=== PATIENT | female | born 1950 | race Caucasian/White ===

== ENCOUNTER 2024-11-09 17:23 | Inpatient (IN) | payer MEDICARE, OTHER ==
[~2024-11-09] VITALS: Ht 167.6 cm; Wt 92.5 kg
[2024-11-09] MEDS: IV NS 0.9% 1,000 ML BAG IV ONE (18:02)
[2024-11-09 18:05] LABS: PLATELET COUNT (AUTO) 326 K/uL (150-450); RED BLOOD CELL COUNT(AUTO) 3.68 MIL/uL (4.0-5.2); RED CELL DISTRIBUTION WIDTH 16.1 % (11.5-15.0); WHITE BLOOD COUNT (AUTO) 12.9 K/uL (4.3-11.0)
[2024-11-09 18:15] LABS: CALCIUM, SERUM 8.1 mg/dL (8.5-10.1); CREATININE 2.0 mg/dL (0.6-1.3); SODIUM SERUM 132 mmol/L (136-145); UREA NITROGEN, BLOOD 43 mg/dL (7-18)
[2024-11-09 18:20] LABS: INR 0.99 (0.91-1.10)
[2024-11-09 18:21] LABS: ASPARTATE AMINOTRANSFERASE 14 U/L (15-37); TOTAL PROTEIN, SERUM 6.6 g/dL (6.4-8.2)
[2024-11-09 18:22] LABS: LACTIC ACID 0.8 mmol/L (0.4-2.0)
[2024-11-09] MEDS ORDERED: CEFTRIAXONE 1GM BAG (ER ONLY) 50 ML IV ONE (18:40)
[2024-11-09] MEDS: CEFTRIAXONE 1GM BAG (ER ONLY) 1 GM/50 ML PIGGYBACK IV ONE (18:45)
[2024-11-09 18:56] LABS: APPEARANCE,URINE SLIGHTLY CLOUDY (CLEAR); BLOOD, URINE TRACE-INTA Ery/uL (NEGATIVE); LEUKOCYTE ESTERASE ,URINE 3+ (NEGATIVE); NITRITE, URINE POSITIVE (NEGATIVE); UGLUCOSE NEGATIVE (NEGATIVE)
[2024-11-09] MEDS ORDERED: AZITHROMYCIN 500 MG VIAL ONE (19:06)
[2024-11-09 19:10] LABS: ADD URINE CULTURE YES; SQUAMOUS EPITHELIAL CELL,UR Moderate /HPF (None Seen)
[2024-11-09] MEDS: AZITHROMYCIN 500 MG in IV D5W 250 ML IV ONE (19:15)
[2024-11-09] MEDS ORDERED: ACET-2030 PO (19:27)
[2024-11-09] MEDS ORDERED: GABA300C PO (19:27)
[2024-11-09] MEDS ORDERED: SACU1TAB PO (19:27)
[2024-11-09] MEDS ORDERED: TRAM50TA2 PO (19:27)
[2024-11-09] MEDS ORDERED: ACET-868 PO (19:27)
[2024-11-09] MEDS ORDERED: INSU100I30 SQ (19:27)
[2024-11-09] MEDS ORDERED: INSU100V39 SQ (19:27)
[2024-11-09] MEDS ORDERED: MAGN400O6 PO (19:27)
[2024-11-09] MEDS ORDERED: SERT50TA PO (19:27)
[2024-11-09] MEDS ORDERED: LIDO30CR47 TP (19:27)
[2024-11-09] MEDS ORDERED: MULT-447 PO (19:27)
[2024-11-09] MEDS ORDERED: HYDR453. TP (19:27)
[2024-11-09] MEDS ORDERED: CARB1TAB21 PO (19:27)
[2024-11-09] MEDS ORDERED: DOXE75CA4 PO (19:27)
[2024-11-09] MEDS ORDERED: LORA-258 PO (19:27)
[2024-11-09] MEDS ORDERED: L. A1TAB10 PO (19:27)
[2024-11-09] MEDS ORDERED: ROPI0.5T4 PO (19:27)
[2024-11-09] MEDS ORDERED: FAMO20TA8 PO (19:27)
[2024-11-09] MEDS ORDERED: CRAN425C6 PO (19:27)
[2024-11-09] MEDS ORDERED: BUPR1PAT20 TD (19:27)
[2024-11-09] MEDS ORDERED: FLUT1BLS IH (19:27)
[2024-11-09] MEDS ORDERED: LORA10TA7 PO (19:27)
[2024-11-09] MEDS ORDERED: VIT1CAPS44 PO (19:27)
[2024-11-09] MEDS ORDERED: IPRA3AMP22 IH (19:27)
[2024-11-09] MEDS ORDERED: ALBU8.5H8 IH (19:27)
[2024-11-09] MEDS ORDERED: NITR50CA4 PO (19:27)
[2024-11-09] MEDS ORDERED: GUAI-1189 PO (19:27)
[2024-11-09] MEDS ORDERED: ONDA4TAB5 PO (19:27)
[2024-11-09] MEDS ORDERED: ATOR40TA PO (19:27)
[2024-11-09] MEDS ORDERED: DIPH25TA25 PO (19:27)
[2024-11-09] MEDS ORDERED: MECL-159 PO (19:27)
[2024-11-09] MEDS ORDERED: LEVO100T9 PO (19:27)
[2024-11-09] MEDS ORDERED: DICL100G26 TP (19:27)
[2024-11-09] MEDS ORDERED: ASPI-1169 PO (19:27)
[2024-11-09] MEDS ORDERED: ARIP2TAB3 PO (19:27)
[2024-11-09] MEDS ORDERED: TAMS-12 PO (19:27)
[2024-11-09] MEDS ORDERED: CARV3.12 PO (19:27)
[2024-11-09] MEDS ORDERED: GLUC1KIT IM (19:27)
[2024-11-09] MEDS ORDERED: MIDODRINE HCL (5MG) 5 MG TABLET ONE (20:02)
[2024-11-09] MEDS: MIDODRINE HCL (5MG) 5 MG TABLET PO STA (20:06)
[2024-11-09] MEDS ORDERED: NOREPINEPHRINE 8MG/250ML RTU 250 ML IV ONE (20:35)
[2024-11-09] MEDS: NOREPINEPHRINE 8 MG in IV D5W 242 ML IV PRN ×2 (20:44→23:09)
[2024-11-09] MEDS ORDERED: ACETAMINOPHEN 325 MG TABLET PO PRN (21:00)
[2024-11-09] MEDS ORDERED: DOSING PER PHARMACY-VANCOMYCIN IV XX PRN (21:00)
[2024-11-09] MEDS ORDERED: NOREPINEPHRINE 8 MG in IV D5W 242 ML IV PRN (21:00)
[2024-11-09] MEDS ORDERED: DOSING PER PHARMACY-ZOSYN IV 1 EA EA XX PRN ×2 (21:00)
[2024-11-09] MEDS ORDERED: MAGNESIUM HYDROXIDE 30 ML UDC PO PRN ×2 (21:00→23:30)
[2024-11-09] MEDS ORDERED: Z GUARD REMEDY 4 OZ OINT TP PRN (21:00)
[2024-11-09] MEDS ORDERED: ZOLPIDEM TARTRATE 5 MG TABLET PO PRN (21:00)
[2024-11-09] MEDS ORDERED: MAG HYDROX/AL HYDROX/SIMETH 30 ML UDC PO PRN (21:00)
[2024-11-09 23:00] VITALS: BP 102/62; O2SAT 97
[2024-11-09] MEDS ORDERED: IV NS 0.9% 1,000 ML BAG IV PRN (23:00)
[2024-11-09 23:15] VITALS: BP 131/64; O2SAT 98
[2024-11-09] MEDS: VANCOMYCIN 1 GM in IV D5W 250ml IV SCH (23:23)
[2024-11-09] MEDS: VANCOMYCIN 1 GM /D5W 250 ML PB IV ONE (23:24)
[2024-11-09 23:30] VITALS: BP 94/52; O2SAT 96
[2024-11-09] MEDS ORDERED: GUAIFENESIN/D-METHORPHAN HB 5 ML UDC PO PRN (23:30)
[2024-11-09] MEDS ORDERED: IPRATROPIUM NEB FS 0.5 MG/2.5 ML AMPUL.NEB NEB PRN (23:30)
[2024-11-09] MEDS ORDERED: HYDROCORTISONE 1% CREAM 28.35 GM TUBE TP PRN (23:30)
[2024-11-09] MEDS ORDERED: BUPRENORPHINE TD SCH (23:30)
[2024-11-09] MEDS ORDERED: MECLIZINE HCL 25 MG TABLET PO PRN (23:30)
[2024-11-09] MEDS ORDERED: Medication Not On Formulary EA (Ipratropium/Albuterol Sulfate (Ipratr-Albuterol 0.5-3 Mg IH PRN (23:30)
[2024-11-09] MEDS ORDERED: ALBUTEROL FS 2.5 MG/3 ML VIAL.NEB NEB PRN ×2 (23:30)
[2024-11-09] MEDS ORDERED: TRAMADOL HCL 50 MG TABLET PO PRN (23:30)
[2024-11-09 23:45] VITALS: BP 115/61; O2SAT 98
[2024-11-10] VITALS (100 sets, daily range): BP systolic 62–183; BP diastolic 21–145; TEMP 97.5–97.9; O2SAT 78–99
[2024-11-10] MEDS ORDERED: IV NS 0.9% 1,000 ML BAG IV PRN
[2024-11-10] MEDS: IV NS 0.9% 1,000 ML IV PRN (00:22)
[2024-11-10] MEDS: VANCOMYCIN 1 GM /D5W 250 ML PB IV ONE (00:41)
[2024-11-10] MEDS: ZOSYN IVPB 3.375 G in IV D5W 50ml IV SCH (00:44)
[2024-11-10] MEDS: PIPERACI/TAZO 3.375GM/D5W 50ML PB IV ONE ×2 (00:45→05:38)
[2024-11-10] MEDS: NOREPINEPHRINE 8 MG in IV D5W 242 ML IV PRN (02:06)
[2024-11-10] MEDS: BLOOD SUGAR DIAGNOSTIC 1 EACH STRIP IN SCH (05:32)
[2024-11-10] MEDS: INSULIN REGULAR, HUMAN 100 UNIT/ML 3 ML VIAL SQ PRN (05:35)
[2024-11-10 06:11] LABS: RED BLOOD CELL COUNT(AUTO) 3.82 MIL/uL (4.0-5.2); RED CELL DISTRIBUTION WIDTH 16.5 % (11.5-15.0); WHITE BLOOD COUNT (AUTO) 15.0 K/uL (4.3-11.0)
[2024-11-10 06:31] LABS: PLATELET COUNT (AUTO) 25 K/uL (150-450)
[2024-11-10 06:35] LABS: CALCIUM, SERUM 8.1 mg/dL (8.5-10.1); CREATININE 1.8 mg/dL (0.6-1.3); PHOSPHORUS 4.6 mg/dL (2.5-4.9); SODIUM SERUM 136.0 mmol/L (136-145); UREA NITROGEN, BLOOD 37.0 mg/dL (7-18)
[2024-11-10 07:22] LABS: LYMPHOCYTES % (MANUAL) 9 % (16-48); MONOCYTES % (MANUAL) 2 % (0-11.0); NEUTROPHILS % (MANUAL) 89 (42-76); PLATELET ESTIMATE DECREASED
[2024-11-10] MEDS: PANTOPRAZOLE 40 MG VIAL IV SCH (08:31)
[2024-11-10] MEDS: LEVOTHYROXINE SODIUM 100 MCG TABLET PO SCH (08:31)
[2024-11-10] MEDS: SERTRALINE HCL 50 MG TABLET PO SCH (08:32)
[2024-11-10] MEDS: ACIDOPHILUS/BULGARICUS 1 EACH TAB.CHEW PO SCH (08:32)
[2024-11-10] MEDS: ARIPIPRAZOLE 2 MG TABLET PO SCH (08:32)
[2024-11-10] MEDS: CARBIDOPA/LEVODOPA 25/100 MG 1 UDTAB PO SCH (08:34)
[2024-11-10] MEDS: ASPIRIN 81 MG TAB.CHEW PO SCH (08:34)
[2024-11-10] MEDS: GABAPENTIN 300 MG CAPSULE PO SCH (08:34)
[2024-11-10] MEDS: HEPARIN SODIUM, PORCINE 5000 UNITS/1 ML VIAL SQ SCH (08:35)
[2024-11-10] MEDS: FLUTICASONE/VILANTEROL 1 EACH BLST.W.DEV IH SCH (08:39)
[2024-11-10] MEDS: SODIUM ZIRCONIUM CYCLOSILICATE 10 GM POWD.PACK PO SCH (09:54)
[2024-11-10 15:20] LABS: CALCIUM, SERUM 7.6 mg/dL (8.5-10.1); CREATININE 1.7 mg/dL (0.6-1.3); SODIUM SERUM 139.0 mmol/L (136-145); UREA NITROGEN, BLOOD 34.0 mg/dL (7-18)
[2024-11-10 15:46] LABS: URINE TOTAL PROTEIN 1.2 mg/dL (0-11.9)
[2024-11-10 15:51] LABS: RED BLOOD CELL COUNT(AUTO) 3.16 MIL/uL (4.0-5.2); RED CELL DISTRIBUTION WIDTH 16.3 % (11.5-15.0); WHITE BLOOD COUNT (AUTO) 13.0 K/uL (4.3-11.0)
[2024-11-10 16:10] LABS: PLATELET COUNT (AUTO) 15 K/uL (150-450)
[2024-11-10 16:32] LABS: CREATININE, URINE < 5.0 MG/DL (30.0-125.0)
[2024-11-10] MEDS: PIPERACILLIN /TAZOBACTAM 3.375 G in IV D5W 100 ML IV SCH (17:00)
[2024-11-10 18:18] LABS: BASOPHILS % (MANUAL) 0 % (0.0-2.0); EOSINOPHILS % (MANUAL) 0 % (0-4); LYMPHOCYTES % (MANUAL) 6 % (16-48); MONOCYTES % (MANUAL) 4 % (0-11.0); NEUTROPHILS % (MANUAL) 90 (42-76); PLATELET ESTIMATE DECREASED
[2024-11-10] MEDS: DOXEPIN HCL (25 MG) 25 MG CAPSULE PO SCH (21:08)
[2024-11-10] MEDS: TAMSULOSIN 0.4 MG CAP.SR.24H PO SCH (21:08)
[2024-11-10] MEDS: ATORVASTATIN 40 MG TABLET PO SCH (21:08)
[2024-11-10] MEDS: INSULIN GLARGINE, 100 UNIT/ML CARTRIDGE SQ SCH (22:00)
[2024-11-10] MEDS ORDERED: INSULIN GLARGINE, 100 UNIT/ML CARTRIDGE SQ ONE (22:28)
[2024-11-11] VITALS (47 sets, daily range): BP systolic 71–149; BP diastolic 44–133; TEMP 97.9–98.7; O2SAT 89–99
[2024-11-11] MEDS: ACETAMINOPHEN ES 500 MG TABLET PO PRN (00:42)
[2024-11-11] MEDS ORDERED: PHENYLEPHRINE 50 MG in IV NS 0.9% 245 ML IV PRN (06:00)
[2024-11-11 08:45] LABS: RED BLOOD CELL COUNT(AUTO) 3.29 MIL/uL (4.0-5.2); RED CELL DISTRIBUTION WIDTH 16.8 % (11.5-15.0); WHITE BLOOD COUNT (AUTO) 10.0 K/uL (4.3-11.0)
[2024-11-11 08:54] LABS: PLATELET COUNT (AUTO) 19 K/uL (150-450)
[2024-11-11 08:57] LABS: CREATINE KINASE, TOTAL 43 U/L (26-192)
[2024-11-11 09:03] LABS: ASPARTATE AMINOTRANSFERASE 11 U/L (15-37); CALCIUM, SERUM 7.6 mg/dL (8.5-10.1); CREATININE 1.3 mg/dL (0.6-1.3); PHOSPHORUS 3.6 mg/dL (2.5-4.9); SODIUM SERUM 142 mmol/L (136-145); TOTAL PROTEIN, SERUM 5.5 g/dL (6.4-8.2); UREA NITROGEN, BLOOD 29 mg/dL (7-18)
[2024-11-11] MEDS: VANCOMYCIN HCL 1.25 GM in IV D5W 250 ML IV SCH (11:53)
[2024-11-11] MEDS: SUCRALFATE 1 G/10 ML UDC GT SCH (11:56)
[2024-11-11 13:30] LABS: LYMPHOCYTES % (MANUAL) 7 % (16-48); MONOCYTES % (MANUAL) 2 % (0-11.0); NEUTROPHILS % (MANUAL) 91 (42-76)
[2024-11-11 13:31] LABS: PLATELET ESTIMATE DECREASED
[2024-11-11] MEDS: ARGATROBAN 250 MG in IV D5W 247.5 ML IV PRN (14:21)
[2024-11-11 17:57] LABS: RHEUMATOID FACTOR SCREEN NEGATIVE (NEGATIVE)
[2024-11-11 18:05] LABS: FIBRINOGEN ACTIVITY 386.0 Mg/dL (213-485); INR 3.7 (0.91-1.10)
[2024-11-11 18:06] LABS: IRON, SERUM 19.0 ug/dl (50-175)
[2024-11-11] MEDS: ACETAMINOPHEN 325 MG TABLET PO PRN (22:10)
[2024-11-12] VITALS (15 sets, daily range): BP systolic 75–138; BP diastolic 41–73; TEMP 97.7–98.6; O2SAT 94–100
[2024-11-12 04:19] LABS: RED BLOOD CELL COUNT(AUTO) 2.97 MIL/uL (4.0-5.2); RED CELL DISTRIBUTION WIDTH 16.3 % (11.5-15.0); WHITE BLOOD COUNT (AUTO) 9.0 K/uL (4.3-11.0)
[2024-11-12 04:36] LABS: PLATELET COUNT (AUTO) 36 K/uL (150-450)
[2024-11-12 04:44] LABS: ASPARTATE AMINOTRANSFERASE 6 U/L (15-37); CALCIUM, SERUM 7.7 mg/dL (8.5-10.1); CREATININE 1.1 mg/dL (0.6-1.3); PHOSPHORUS 2.6 mg/dL (2.5-4.9); SODIUM SERUM 142 mmol/L (136-145); TOTAL PROTEIN, SERUM 5.5 g/dL (6.4-8.2); UREA NITROGEN, BLOOD 19 mg/dL (7-18)
[2024-11-12 05:45] LABS: BASOPHILS % (MANUAL) 0 % (0.0-2.0); EOSINOPHILS % (MANUAL) 3 % (0-4); LYMPHOCYTES % (MANUAL) 9 % (16-48); MONOCYTES % (MANUAL) 7 % (0-11.0); NEUTROPHILS % (MANUAL) 81 (42-76); PLATELET ESTIMATE DECREASED
[2024-11-12] MEDS ORDERED: PANTOPRAZOLE 40 MG TABLET.DR PO SCH (09:00)
[2024-11-12 09:07] LABS: PTH, INTACT 24 pg/mL (15-65)
[2024-11-12 09:07] LABS: HEPATITIS B CORE AB, TOTAL Negative (Negative); HEPATITIS B SURFACE AB (QUAL) Reactive (.)
[2024-11-12 09:57] LABS: OCCULT BLOOD STOOL NEGATIVE (NEGATIVE)
[2024-11-12] MEDS: ONDANSETRON HCL/PF 4 MG/2 ML VIAL IVP PRN (10:06)
[2024-11-12 11:08] LABS: IMMUNOGLOBULIN A, SERUM 288 mg/dL (64-422); IMMUNOGLOBULIN M, SERUM 72 mg/dL (26-217)
[2024-11-12] MEDS ORDERED: VANCOMYCIN 1 GM in IV D5W 250ml IV SCH (12:00)
[2024-11-12] MEDS: VANCOMYCIN HCL 1.25 GM in IV D5W 250 ML IV SCH (12:58)
[2024-11-12 14:07] LABS: *ANA ANTI-CENTROMERE B AB <0.2 AI (0.0-0.9); *ANA ANTI-DNA(DS) AB, QN <1 IU/mL (0-9); *ANA ANTI-JO-1 <0.2 AI (0.0-0.9); *ANA ANTICHROMATIN ANTIBODY <0.2 AI (0.0-0.9); *ANA RNP ANTIBODIES <0.2 AI (0.0-0.9); *ANA SJOGREN'S ANTI-SS-A <0.2 AI (0.0-0.9); *ANA SJOGREN'S ANTI-SS-B <0.2 AI (0.0-0.9); *ANAANTI-SCLERODERMA-70 AB <0.2 AI (0.0-0.9); *ANASMITH AB <0.2 AI (0.0-0.9)
[2024-11-12 14:54] LABS: HIV-1/2 ANTIBODY NON REACTIVE (NONREACTIVE)
[2024-11-12] MEDS: SOD FERRIC GLUC 125 MG in IV NS 0.9% 100 ML IV SCH (15:04)
[2024-11-12] MEDS: CEFTAZIDIME 1 G in IV D5W 50 ML IV SCH (18:12)
[2024-11-12] MEDS ORDERED: DOXEPIN HCL (25 MG) 25 MG CAPSULE PO ONE (22:24)
[2024-11-12 23:43] LABS: RED BLOOD CELL COUNT(AUTO) 2.89 MIL/uL (4.0-5.2); RED CELL DISTRIBUTION WIDTH 16.3 % (11.5-15.0); WHITE BLOOD COUNT (AUTO) 9.6 K/uL (4.3-11.0)
[2024-11-12 23:51] LABS: PLATELET COUNT (AUTO) 50 K/uL (150-450)
[2024-11-12 23:57] LABS: FIBRINOGEN ACTIVITY 329.0 Mg/dL (213-485); INR 1.08 (0.91-1.10)
[2024-11-13] VITALS: BP 121/57; TEMP 98; O2SAT 95
[2024-11-13 01:07] LABS: FOLIC ACID 6.4 ng/mL (>3.0)
[2024-11-13 01:30] LABS: EOSINOPHILS % (MANUAL) 3 % (0-4); LYMPHOCYTES % (MANUAL) 9 % (16-48); MONOCYTES % (MANUAL) 6 % (0-11.0); NEUTROPHILS % (MANUAL) 82 (42-76); PLATELET ESTIMATE DECREASED
[2024-11-13 04:00] VITALS: BP 115/57; TEMP 99; O2SAT 95
[2024-11-13 04:07] LABS: FREE KAPPA LT CHAINS SERUM 28.7 mg/L (3.3-19.4); FREE LAMBDA LT CHAIN SERUM 25.5 mg/L (5.7-26.3); KAPPA/LAMBDA RATIO SERUM 1.13 (0.26-1.65)
[2024-11-13 08:00] VITALS: BP 144/63; TEMP 98.2; O2SAT 97
[2024-11-13] MEDS: SUCRALFATE 1 G TABLET PO SCH (08:42)
[2024-11-13 12:00] VITALS: BP 148/68; TEMP 97.7; O2SAT 98
[2024-11-13 16:00] VITALS: BP 144/80; TEMP 98.4; O2SAT 96
[2024-11-13 16:07] LABS: *SPE A/G RATIO 0.8 (0.7-1.7); *SPE ALBUMIN 2.1 g/dL (2.9-4.4); *SPE ALPHA-1-GLOBULIN 0.4 g/dL (0.0-0.4); *SPE ALPHA-2-GLOBULIN 0.8 g/dL (0.4-1.0); *SPE BETA GLOBULIN 0.8 g/dL (0.7-1.3); *SPE GLOBULIN, TOTAL 2.6 g/dL (2.2-3.9); *SPE M-SPIKE Not Observed g/dL (Not Observed); *SPE PROTEIN TOTAL 4.7 g/dL (6.0-8.5); *SPEGAMMA GLOBULIN 0.7 g/dL (0.4-1.8)
[2024-11-13 17:13] LABS: FIBRINOGEN ACTIVITY 375.0 Mg/dL (213-485); INR 1.08 (0.91-1.10)
[2024-11-13 17:25] LABS: PLATELET COUNT (AUTO) 88 K/uL (150-450); RED BLOOD CELL COUNT(AUTO) 3.20 MIL/uL (4.0-5.2); RED CELL DISTRIBUTION WIDTH 16.6 % (11.5-15.0); WHITE BLOOD COUNT (AUTO) 10.7 K/uL (4.3-11.0)
[2024-11-13 17:26] LABS: ASPARTATE AMINOTRANSFERASE 13 U/L (15-37); CALCIUM, SERUM 7.9 mg/dL (8.5-10.1); CREATININE 0.8 mg/dL (0.6-1.3); PHOSPHORUS 1.9 mg/dL (2.5-4.9); SODIUM SERUM 140 mmol/L (136-145); TOTAL PROTEIN, SERUM 6.1 g/dL (6.4-8.2); UREA NITROGEN, BLOOD 7 mg/dL (7-18)
[2024-11-13 20:00] VITALS: BP 111/59; TEMP 98.4; O2SAT 96
[2024-11-13 20:09] LABS: LYMPHOCYTES % (MANUAL) 10 % (16-48); MONOCYTES % (MANUAL) 3 % (0-11.0); NEUTROPHILS % (MANUAL) 87 (42-76); PLATELET ESTIMATE DECREASED
[2024-11-14] VITALS: BP 136/69; TEMP 98.6; O2SAT 97
[2024-11-14 04:00] VITALS: BP 147/68; TEMP 98.4; O2SAT 99
[2024-11-14] MEDS: DEXTROSE 50%-WATER 50 ML DISP.SYRIN IV PRN (05:45)
[2024-11-14 08:00] VITALS: BP 147/68; TEMP 98.4; O2SAT 99
[2024-11-14 12:00] VITALS: BP 161/77; TEMP 97.3; O2SAT 99
[2024-11-14 13:11] LABS: CALCIUM, SERUM 8.5 mg/dL (8.5-10.1); CREATININE 0.7 mg/dL (0.6-1.3); SODIUM SERUM 144.0 mmol/L (136-145); UREA NITROGEN, BLOOD 4.0 mg/dL (7-18)
[2024-11-14 13:29] LABS: FIBRINOGEN ACTIVITY 421.0 Mg/dL (213-485); INR 1.08 (0.91-1.10)
[2024-11-14 13:31] LABS: PLATELET COUNT (AUTO) 137 K/uL (150-450); RED BLOOD CELL COUNT(AUTO) 3.47 MIL/uL (4.0-5.2); RED CELL DISTRIBUTION WIDTH 15.7 % (11.5-15.0); WHITE BLOOD COUNT (AUTO) 12.7 K/uL (4.3-11.0)
[2024-11-14] MEDS: CLONIDINE HCL 0.1 MG TABLET PO ONE (15:17)
[2024-11-14 16:00] VITALS: BP 156/86; TEMP 98.6; O2SAT 98
== END 2024-11-14 17:35 | DRG 871 ==
LOC: ER 17:28 → TELE1 19:42 → ICU 21:25 → TELE1 11-12 11:40 → MEDSG1 11-14 13:36
PROVIDERS: ADMIT Student in an Organized Health Care Education/Training Program
PROC: 02HV33Z Insertion of Infusion Device into Superior Vena Cava, Percutaneous Approach (ICD-10-PCS; principal; 2024-11-09)
PROC: B548ZZA Ultrasonography of Superior Vena Cava, Guidance (ICD-10-PCS; 2024-11-09)
DX: A41.9 Sepsis, unspecified organism (principal); J15.69 Pneumonia due to other Gram-negative bacteria; R65.21 Severe sepsis with septic shock; J96.01 Acute respiratory failure with hypoxia; N17.0 Acute kidney failure with tubular necrosis; I13.0 Hypertensive heart and chronic kidney disease with heart failure and stage 1 through stage 4 chronic kidney disease, or unspecified chronic kidney disease; E44.0 Moderate protein-calorie malnutrition; E87.1 Hypo-osmolality and hyponatremia; D61.818 Other pancytopenia; N18.9 Chronic kidney disease, unspecified; Z20.822 Contact with and (suspected) exposure to COVID-19; G20.A1 Parkinson's disease without dyskinesia, without mention of fluctuations; E11.22 Type 2 diabetes mellitus with diabetic chronic kidney disease; E78.5 Hyperlipidemia, unspecified; E03.9 Hypothyroidism, unspecified; I50.9 Heart failure, unspecified; K21.9 Gastro-esophageal reflux disease without esophagitis; I25.2 Old myocardial infarction; D64.9 Anemia, unspecified; Z79.899 Other long term (current) drug therapy; Z79.890 Hormone replacement therapy; Z79.51 Long term (current) use of inhaled steroids; Z79.4 Long term (current) use of insulin; Z79.82 Long term (current) use of aspirin; B96.89 Other specified bacterial agents as the cause of diseases classified elsewhere; E87.5 Hyperkalemia; F41.9 Anxiety disorder, unspecified; F32.A Depression, unspecified; B96.4 Proteus (mirabilis) (morganii) as the cause of diseases classified elsewhere; E11.65 Type 2 diabetes mellitus with hyperglycemia; D50.9 Iron deficiency anemia, unspecified; D69.59 Other secondary thrombocytopenia; I69.398 Other sequelae of cerebral infarction; Y95 Nosocomial condition; M89.8X9 Other specified disorders of bone, unspecified site; G47.33 Obstructive sleep apnea (adult) (pediatric)
CPT/HCPCS: 36415; 71045-TC; 76700-TC; 76770-TC; 80048-TC; 80053-TC; 80076-TC; 80202-TC; 81001; 82272-TC; 82378; 82550-TC; 82570-TC; 82607-TC; 82728-TC; 82784; 82962-TC; 83540-TC; 83605-TC; 83735-TC; 83880; 83970; 84100-TC; 84155; 84165; 84300-TC; 84443-TC; 84484-TC; 85025-TC; 85027-TC; 85378-TC; 85396; 85730-TC; 86022; 86225; 86235; 86334; 86431-TC; 86704; 86706; 86803; 87040-TC; 87081-TC; 87086-TC; 87186-TC; 87340; 87806; 93307-TC; 93970-TC; A4223; A6213; G0378; J0456; J0696; J0713; J0883; J1644; J1815; J2405; J2470; J2543; J2916; J3370; J7030; J7040; J7050; J7060